=== PATIENT | female | born 1940 | race Caucasian/White ===

== ENCOUNTER 2016-11-20 13:25 | Outpatient (CLI) | payer MEDICARE ==
[2016-11-20 18:31] LABS: ALBUMIN/GLOBULIN RATIO 1.3 (1.0-2.2); BILIRUBIN,TOTAL 0.3 mg/dL (0.2-1.0); BUN - BLOOD UREA NITROGEN 17 mg/dL (6-20); CALCIUM 9.6 mg/dL (8.5-10.3); CARBON DIOXIDE - CO2 29 mmol/L (21-32); CHLORIDE 103 mmol/L (101-111); CHOL/HDL RATIO 3.1 (<4.4); CHOLESTEROL 194 mg/dL; CREATININE 0.8 mg/dL (0.4-1.0); GFR - MDRD 70 (>89); GLUCOSE 104 mg/dL (70-100); HDL CHOLESTEROL 62 mg/dL; LDL/HDL RATIO 1.5 (<4.4); SODIUM 139 mmol/L (135-145); TOTAL PROTEIN 7.2 g/dL (6.7-8.2); TRIGLYCERIDES 195 mg/dL; VLDL CHOLESTEROL 39 mg/dL
== END 2016-11-20 13:26 | disposition home or self-care (01) ==
LOC: LAB.F 13:25
PROVIDERS: ATTEND Family Medicine
DX: Z00.00 Encounter for general adult medical examination without abnormal findings (principal); I10 Essential (primary) hypertension; I47.1 Supraventricular tachycardia
CPT/HCPCS: 36415; 80053; 80061; 81001

== ENCOUNTER 2016-12-18 08:26 | Outpatient (CLI) | payer MEDICARE ==
--- NOTE | 2016-12-19 12:45 | Mammography Report ---
DIGITAL SCREENING MAMMOGRAM: 12/18/2016 CLINICAL INDICATION: A 76-year-old with family history of breast cancer for screening. COMPARISON: 08/2014, 03/2012 TECHNIQUE: Routine CC and MLO projections were obtained of the breasts. FINDINGS: The breasts demonstrate scattered fibroglandular densities bilaterally. Coarse and puncta te, typically benign calcifications are present. Intramammary lymph nodes are stable. No suspicious masses, clustered microcalcifications, or regions of architectural distortion are identified. IMPRESSION: BENIGN FINDINGS. RECOMMENDATION: Routine annual screening unless otherwise clinically indicated. BIRADS CATEGORY 2 - BENIGN FINDINGS. STANDARD QUALIFYING STATEMENTS 1. This examination was reviewed with the aid of Computer-Aided Detection (CAD). 2. A negative or benign imaging report should not delay biopsy if clinically suspicious findings are present. Consider surgical consultation if warranted. More than 5% of cancers are not identified by i maging. 3. Dense breasts may obscure an underlying neoplasm. JOB #: [id number] EXT JOB #:[id number]
== END 2016-12-18 08:27 | disposition home or self-care (01) ==
LOC: DI.S 08:26
PROVIDERS: ATTEND Specialist
DX: Z12.31 Encounter for screening mammogram for malignant neoplasm of breast (principal); Z80.3 Family history of malignant neoplasm of breast
CPT/HCPCS: 77067

== ENCOUNTER 2017-06-25 08:02 | Day surgery (SDC) | payer MEDICARE ==
[2017-06-25] MEDS ORDERED: PHENYLEPHRINE 2.5% OPHTH 2 ML DROPS LEFTEYE ONE (08:35)
[2017-06-25] MEDS ORDERED: CYCLOPENTOLATE 1% OPHTH DROPS 2 ML LEFTEYE ONE (08:35)
[2017-06-25] MEDS ORDERED: KETOROLAC 0.45% OPHTH DROPS LEFTEYE ONE (08:35)
[2017-06-25] MEDS ORDERED: PROPARACAINE 0.5% OPHTH DROPS 15 ML LEFTEYE ONE ×2 (08:35→10:38)
[2017-06-25] MEDS ORDERED: LACTATED RINGERS 500 ML IV ONE (08:51)
[2017-06-25] MEDS ORDERED: BRIMONIDINE 0.2% OPHTH DROPS 5 ML OPTH ONE (10:36)
[2017-06-25] MEDS ORDERED: EPINEPHrine 1 MG/ML AMP IR ONE (10:36)
[2017-06-25] MEDS ORDERED: TIMOLOL 0.5% OPHTH DROPS OPTH ONE (10:37)
[2017-06-25] MEDS ORDERED: CHONDR SULF/HYALURONATE SYRINGE IO ONE (10:37)
[2017-06-25] MEDS ORDERED: BSS/LIDOCAINE/EPINEPHRINE 1 ML SYRINGE IO ONE ×2 (10:37)
[2017-06-25] MEDS ORDERED: TRIAMCIN/MOXIFLOX/VANCO 1 ML VIAL IO ONE ×2 (10:38)
[2017-06-25] MEDS ORDERED: MIDAZOLAM 2 MG/2 ML VIAL IVP ONE (10:50)
[2017-06-25 11:07] VITALS: BP 115/41
--- NOTE | 2017-06-25 11:26 | OPERATIVE REPORT ---
DATE OF SERVICE: 06/25/2017 Physician: Santo Judd MD DATE OF SURGERY: 06/25/2017 PREOPERATIVE DIAGNOSIS: Visually significant cataract, left eye. This was her first cataract surgery. POSTOPERATIVE DIAGNOSIS: Visually significant cataract, left eye. This was her first cataract surgery. NAME OF PROCEDURE: Phacoemulsification with posterior chamber intraocular lens implant, left eye with laser assist. SURGEON: Santo Judd MD ANESTHESIA: Monitored anesthesia care. COMPLICATIONS: None. OPERATIVE INDICATIONS: This is a 76-year-old woman with progressive vision loss in the left eye due to 2+ nuclear sclerotic cataract. Best corrected visual acuity was 20/ 30 with glare to 20/100 in the left eye. Indications for surgery are overall decrease in vision , difficulty seeing words on the computer screen, difficulty reading; difficulty seeing words , closed captions, or game scores on TV; difficulty seeing street signs, difficulty driving in low light or at night, difficulty driving at night because of headlights from other vehicles, difficulty with glare with bright lights in any situation, difficulty tracking a golf ball and decreased acuity with firearms. She was consented at length concerning risks and benefits of cataract surgery, after which she expressed a desire to proceed with surgery. OPERATIVE PROCEDURE: The patient was taken into OR #3 and placed under monitored anesthesia care. A surgical timeout was conducted confirming correct patient, correct procedure, and correct surgical site. She was placed under the LenSx laser and her eye docked in the laser interface. The laser performed the capsulotomy, lens softening, phaco wounds, and arcuate keratotomy incisions. She was then moved to the operating microscope, given topical anesthesia, and then prepped and draped in the usual sterile fashion. The eye was entered at the 6 and 3 o'clock positions. Intracameral Shugarcaine was injected into the anterior chamber, followed by Viscoat. Capsulorrhexis flap created by the LenSx laser was removed from the anterior chamber. The nucleus was hydrodissected and phacoemulsified. The cortex was evacuated using automated infusion and aspiration. Provisc was injected in the capsular bag, and a 16.5 diopter toric [id number] intraocular lens was inserted into the bag and rotated into position 171. Approximately 0.8 mL of a mixture of triamcinolone and moxifloxacin was injected subconjunctivally in the superior quadrant for infection and inflammation prophylaxis. I and A was used to evacuate the viscoelastic materials. The eye was inflated to physiologic pressure using balanced salt solution and found to be watertight. The IOL was again verified to be at the proper position of about 171. The patient was taken from the operating room in good condition and given postoperative instructions. TD: 06/25/2017 11:25 ERICA
== END 2017-06-25 08:03 | disposition home or self-care (01) ==
LOC: SDS 08:02
PROVIDERS: ATTEND Ophthalmology
PROC: 08RK3JZ Replacement of Left Lens with Synthetic Substitute, Percutaneous Approach (ICD-10-PCS; principal; 2017-06-25 09:00)
DX: H25.12 Age-related nuclear cataract, left eye (principal); I49.3 Ventricular premature depolarization
CPT/HCPCS: 66984; A9270; V2632; V2787

== ENCOUNTER 2019-07-09 04:20 | Outpatient (CLI) | payer MEDICARE | END 2019-07-09 04:21 | disposition EMS.NT | LOC: EMS 04:20 | PROVIDERS: ATTEND Surgery | DX: R09.89 Other specified symptoms and signs involving the circulatory and respiratory systems (principal); R07.89 Other chest pain ==

== ENCOUNTER 2022-11-19 09:43 | Outpatient (CLI) | payer MEDICARE ==
--- NOTE | 2022-11-19 10:52 | DEXA Report ---
PROCEDURE: Dexa Spine and/or Hip INDICATIONS: POST MENOPAUSAL TECHNIQUE: Dual energy x-ray absorptiometry (DXA) was performed on a [employer] System. Regions measur ed are the AP Spine, femoral neck, and if needed forearm. COMPARISON: None FINDINGS: Lumbar Spine: Bone Mineral Density 1.683 g/cm/cm,T score 4.2. Left Femoral Neck: Bone Mineral Density 1.008 g/cm/cm, T score -0.2. Left Hip: Bone Mineral Density 1.006 g/cm/cm,T score 0.0. (T score greater or equal to -1.0: NORMAL) (T score from -1.1 to -2.4: OSTEOPENIA) (T score less than or equal to -2.5 to: OSTEOPOROSIS) Impression: By WHO criteria, this patient has normal bone density. Patients with diagnosis of osteoporosis or osteopenia should have regular bone mineral density assess ment. For those eligible for Medicare, routine testing is allowed once every 2 years. Testing frequ ency can be increased for patients who have rapidly progressing disease or for those who are receivin g medical therapy to restore bone mass. Reviewed by: Jake Cook MD on 11/19/2022 10:51 AM PDT Approved by: Jake Cook MD on 11/19/2022 10:51 AM PDT Station ID: [id number]
== END 2022-11-19 09:44 | disposition home or self-care (01) ==
LOC: DI 09:43
PROVIDERS: ATTEND Registered Nurse
DX: Z78.0 Asymptomatic menopausal state (principal)